=== PATIENT | female | born 1975 | race Caucasian/White ===

== ENCOUNTER 2020-10-06 10:30 | Emergency (ER) | payer OTHER ==
[~2020-10-06] VITALS: Ht 167.6 cm; Wt 122.9 kg
[2020-10-06] MEDS ORDERED: NORCO5 PO (10:39)
[2020-10-06] MEDS ORDERED: MELOXICAM15 MG PO (10:39)
[2020-10-06] MEDS ORDERED: NEURONTIN300 MG PO (10:39)
[2020-10-06] MEDS ORDERED: CELEXA 20 MG TA20 MG PO (10:39)
[2020-10-06] MEDS ORDERED: IMITREX 25 MG T25 M1 PO (10:40)
[2020-10-06] MEDS ORDERED: TOPAMAX100 MG PO (10:40)
[2020-10-06] MEDS ORDERED: PAMELOR10 MG PO (10:40)
[2020-10-06 10:52] LABS: ABSOLUTE BASOPHILS 0.1 thou/uL (0.0-0.2); ABSOLUTE EOSINOPHILS 0.2 thou/uL (0.0-0.7); ABSOLUTE MONOCYTES 0.4 thou/uL (0.0-1.2); ABSOLUTE NEUTROPHILS 3.8 thou/uL (1.6-8.1); BASOPHILS 1.5 %; EOSINOPHILS 3.7 %; HEMATOCRIT 44.1 % (37.0-47.0); HEMOGLOBIN 15.1 gm/dL (12.0-15.0); MCH 31.1 pg (26.0-34.0); MCHC 34.3 g/dL (28.0-37.0); MCV 90.7 fL (80.0-100.0); MONOCYTES 5.7 %; MPV 7.5 fl. (7.2-11.1); NUCLEATED RBCS 0 /100WBC; PLATELET COUNT* 264 thou/uL (150-400); POLYS 58.1 %; RBC 4.86 mil/uL (4.20-5.00); RDW-CV 13.5 % (10.5-14.5); WBC 6.5 thou/uL (4.0-11.0)
[2020-10-06 11:01] LABS: CALCIUM 9.4 mg/dL (8.5-10.1); CREATININE 0.9 mg/dL (0.6-1.3); POTASSIUM 3.8 mmol/L (3.5-5.1)
[2020-10-06 11:05] LABS: ALBUMIN 4.5 g/dL (3.4-5.0); APTT 29.1 Seconds (25.0-31.3); MAGNESIUM 2.1 mg/dL (1.8-2.4); PROTIME 10.4 Seconds (9.20-11.50); TOTAL BILIRUBIN 0.4 mg/dL (<0.1-1.0); TOTAL PROTEIN 8.7 g/dL (6.4-8.2)
[2020-10-06 13:46] VITALS: BP 114/64
--- NOTE | 2020-10-06 15:24 | EKG ---
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
--- NOTE | 2020-10-06 15:26 | EKG ---
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1975 Requested By: Uri Waters Order Number: [id number] MD: Carlos Nice Measurements Intervals [place] Rate: 82 P: 31 UT: 173 QRS: 5 QRSD: 85 T: 27 QT: 377 QTc: 441 Interpretive Statements Sinus rhythm Low voltage, precordial leads Compared to ECG 10/06/2020 10:37:21 Sinus tachycardia no longer present Electronically Signed On 10-06-2020 15:25:49 CDT by Carlos Nice [email or web address] <ELECTRONICALLY SIGNED> By: Carlos Nice MD, [facility] 10/06/20 1525 1245 1245 Carlos Nice MD, [facility] /EPI
== END 2020-10-06 13:47 | disposition home or self-care (01) ==
LOC: M.ERS 10:30
PROVIDERS: Emergency Medicine Emergency Medical Services
DX: R07.89 Other chest pain (principal); E78.5 Hyperlipidemia, unspecified; G89.29 Other chronic pain; M54.5 Low back pain; G43.909 Migraine, unspecified, not intractable, without status migrainosus; Z88.8 Allergy status to other drugs, medicaments and biological substances; Z79.899 Other long term (current) drug therapy